=== PATIENT | female | born 1995 | race American Indian/Alaskan Native ===

== ENCOUNTER 2017-09-07 16:59 | Emergency (ER) | payer OTHER ==
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
[2017-09-07] MEDS ORDERED: MOTRIN PO ONE (20:46)
[2017-09-07 21:30] VITALS: BP 108/76
== END 2017-09-07 21:35 | disposition home or self-care (01) ==
LOC: ED 16:59
DX: M62.830 Muscle spasm of back (principal); M25.561 Pain in right knee
CPT/HCPCS: 99282